=== PATIENT | female | born 1955 | race Caucasian/White ===

== ENCOUNTER 2018-02-25 08:44 | Outpatient (CLI) | payer BC ==
--- NOTE | 2018-02-25 09:39 | RAD ---
THREE VIEWS LUMBOSACRAL SPINE: Comparison: None. History: Low back pain and leg pain. FINDINGS: Lateral views of the lumbosacral spine were performed in neutral, flexion, and extension. The interve rtebral discs are narrowed throughout the lumbar spine. Vertebral bodies demonstrate normal alignment without fracture or subluxation. Alignment is unchanged on flexion and extension. Small osteophytes are seen throughout the lumbar spine. Posterior facet arthrosis is seen in the lower lumbosacral spin e. IMPRESSION: Degenerative changes in the lumbar spine with unchanged alignment with bending. POS: [facility]
== END 2018-02-25 08:45 | disposition home or self-care (01) ==
LOC: RAD 08:44
PROVIDERS: ATTEND Nurse Practitioner Family
DX: M43.17 Spondylolisthesis, lumbosacral region (principal); M47.816 Spondylosis without myelopathy or radiculopathy, lumbar region
CPT/HCPCS: 72100

== ENCOUNTER 2018-04-02 15:03 | Outpatient (CLI) | payer BC ==
--- NOTE | 2018-04-02 16:23 | RAD ---
TWO VIEWS OF THE RIGHT HIP: Date: 04-02-18 Comparison: None. History: Hip pain. FINDINGS: There is moderate degenerative change involving the right hip with superior joint space narrowing as well as lateral acetabular osteophyte formation. There is also subchondral cystic change involving th e acetabular roof and the femoral head. No acute fracture or dislocation. IMPRESSION: Degenerative joint disease. POS: [facility]
--- NOTE | 2018-04-02 16:26 | RAD ---
LEFT HIP TWO VIEWS: Date: 04-02-18 Comparison: None. History: Hip pain. FINDINGS: There is moderate superior joint space narrowing. There is prominent lateral acetabular osteophyte fo rmation. There is no displaced fracture or dislocation. IMPRESSION: Moderate degenerative change of the left hip. POS: [facility]
== END 2018-04-02 15:04 | disposition home or self-care (01) ==
LOC: TBSIIMAG 15:03
PROVIDERS: ATTEND Neurological Surgery
DX: M25.551 Pain in right hip (principal); M25.552 Pain in left hip; M16.0 Bilateral primary osteoarthritis of hip

== ENCOUNTER 2021-06-28 13:48 | Outpatient (CLI) | payer MEDICARE, OTHER | END 2021-06-28 13:49 | disposition home or self-care (01) | LOC: BICMAMMO 13:48 | PROVIDERS: ATTEND Nurse Practitioner Family | DX: N64.4 Mastodynia (principal) | CPT/HCPCS: 77066; G0279 ==

== ENCOUNTER 2021-10-10 07:53 | Outpatient (CLI) | payer MEDICARE, OTHER, BC ==
[2021-10-10 08:36] LABS: Estimated GFR-MDRD - POC Greater than 90
== END 2021-10-10 07:54 | disposition home or self-care (01) ==
LOC: BICMRI 07:53
PROVIDERS: ATTEND Nurse Practitioner Adult Health
DX: G44.52 New daily persistent headache (NDPH) (principal); R44.2 Other hallucinations
CPT/HCPCS: 70553; 82565

== ENCOUNTER 2022-02-12 13:36 | Emergency (ER) | payer MEDICARE, OTHER, BC ==
[2022-02-12 14:19] LABS: #Basophils 0.1 thou/uL (0.0-0.2); #Monocytes 0.3 thou/uL (0.11-0.59); #Neutrophils 4.6 thou/uL (1.40-6.50); %Basophils 1.1 % (0.0-1.0); %Eosinophils 0.2 % (0.0-10.0); %Monocytes 4.8 % (0.0-10.0); %Neutrophils 76.8 % (42.0-75.0); Hemoglobin 12.6 g/dL (12.0-16.0); Mean Corpuscular HGB CONC 32.7 g/dL (32.0-36.0); Mean Corpuscular Hemoglobin 33.6 pg (27.0-31.0); Mean Platelet Volume 8.1 fL (7.4-10.4); Platelet Count 208 thou/uL (130-400); RBC Distribution Width 11.5 % (11.5-14.5); Red Blood Cell (RBC) Count 3.74 mill/uL (4.20-5.40)
[2022-02-12 14:36] LABS: ALT (SGPT) 25 U/L (8-55); AST (SGOT) 24 U/L (5-34); Albumin 4.4 g/dL (3.4-4.8); Alkaline Phosphatase 84 U/L (40-110); Anion Gap 13 mmol/L (10-20); BUN (Urea Nitrogen) 13 mg/dL (9.8-20.1); Bilirubin, Total 0.6 mg/dL (0.2-1.2); Calc. Creatinine Clearance 0 mL/min (70-130); Calcium 9.4 mg/dL (7.8-10.44); Carbon Dioxide 25 mmol/L (23-31); Chloride 106 mmol/L (98-107); Estimated GFR 94; Globulin 2.2 g/dL (2.4-3.5); Glucose 93 mg/dL (80-115); Potassium 3.8 mmol/L (3.5-5.1); Protein, Total 6.6 g/dL (5.8-8.1); Sodium 140 mmol/L (136-145)
== END 2022-02-12 16:03 | disposition home or self-care (01) ==
LOC: ERS 13:36
DX: I10 Essential (primary) hypertension (principal)
CPT/HCPCS: 36415; 71045; 80053; 84484; 85025; 93005

== ENCOUNTER 2022-06-14 08:08 | Outpatient (CLI) | payer MEDICARE, BC | END 2022-06-14 08:09 | disposition home or self-care (01) | LOC: BICRAD 08:08 | PROVIDERS: ATTEND Internal Medicine Rheumatology | DX: M25.551 Pain in right hip (principal); M25.552 Pain in left hip; M54.50 Low back pain, unspecified; E55.9 Vitamin D deficiency, unspecified; M16.0 Bilateral primary osteoarthritis of hip | CPT/HCPCS: 72170 ==